=== PATIENT | female | born 1930 | race Caucasian/White ===

== ENCOUNTER 2017-05-01 07:48 | Emergency (ER) | payer MEDICARE ==
[2017-05-01 08:44] LABS: BLOOD UREA NITROGEN 29 mg/dL (7-17); CALCIUM 9.5 mg/dL (8.4-10.2); CHLORIDE 110 mmol/L (98-107); GLUCOSE 94 mg/dL (70-100); POTASSIUM 3.4 mmol/L (3.5-5.1); SODIUM 142 mmol/L (137-145)
[2017-05-01 08:48] LABS: HEMOGLOBIN 12.8 g/dL (12.0-16.0); MEAN CORPUS. HGB CONCENTRATION 33.6 g/dL (32.0-36.0); MEAN CORPUSCULAR HEMOGLOBIN 34.7 pg (29.0-35.0); PLATELET COUNT 264 X 10^3uL (130-440); RED BLOOD COUNT 3.67 X 10^6uL (4.20-6.10); RED CELL DISTRIBUTION WIDTH 12.1 % (11.5-14.5); WHITE BLOOD COUNT 11.7 X 10^3uL (3.9-10.7)
[2017-05-01 08:49] LABS: BASOPHIL# 0.1 X 10^3uL (0.0-0.1); BASOPHILS 0.9 % (0.0-2.0); EOSINOPHILS 2.8 % (0.0-6.0); EOSINOPHILS# 0.3 X 10^3uL (0.0-0.4); LYMPHOCYTES 26.1 % (20.0-40.0); LYMPHOCYTES# 3.1 X 10^3uL (0.8-3.8); MEAN PLATELET VOLUME 8.1 fL (7.4-10.4); MONOCYTES# 1.1 X 10^3uL (0.2-1.0); NEUTROPHILS 61.2 % (54.0-75.0); NEUTROPHILS# 7.2 X 10^3uL (2.6-6.7)
--- NOTE | 2017-05-01 10:54 | ER PHYSICIAN DOCUMENTATION ---
Physician Documentation [facility] Name:Chanel Velasquez Age:86 yrs Sex:Female :1930 Arrival Date:05/01/2017 Time:07:48 Bed4 Private MD:Kristina Bustillos ED, Chris Disposition: 05/01/17 10:19 Discharged to Home/Self Care. Impression: Prescription Medicine Overdose. - Condition is Good. - Discharge Instructions: OVERDOSE, Accidental (Adult). - Medical Reconciliation form form. - Follow up: Kristina Bustillos MD; When: 4- 6 days; Reason: Recheck today's complaints, Continuance of care. - Problem is new. - Symptoms are resolved. - Notes: Drink plenty of fluids today. Start taking your Norvasc as usual tomorrow morning. HPI: 05/01 08:00 This 86 yrs old Female presents to ER via Private Vehicle with complaints of cd Accidental Overdose. 08:00 The patient presents to the emergency department after a known overdose, that was cd accidental. Context: Method: the patient has a confirmed or suspected ingestion, Norvasc, Time: 30 minute(s) ago, Extent: the strength of the pills/capsules is 2.5 mg(s), the patient had a total ingestion of approximately 15 mg(s), the OD/poisoning occurred at at home, and was witnessed no one, Psychiatric history: none, Previous OD/poisoning history: none. Associated signs and symptoms: The patient has no apparent associated signs or symptoms. Historical: - Allergies: Ciprofloxacin; Latex; - Home Meds: 1. prednisone oral Unknown once daily 2. Methotrexate (Anti-Rheumatic) Oral 3. Synthroid Oral - PMHx: polymyalgia rheumatica ; ADHD; RBBB; PE; HYPOTHYROIDISM; - Tetanus: < 10 years. - Ebola Screening: : Patient negative for fever greater than or equal to 101.5 degrees Fahrenheit, and additional compatible Ebola Virus Disease symptoms. Patient denies exposure to infectious person. Patient denies travel to an Ebola-affected area in the 21 days before illness onset. No symptoms or risks identified at this time. . - Immunization history: Flu Vaccine < 1 year. - Social history: Smoking status: Patient states former smoker of tobacco. ROS: 08:43 Constitutional: Negative for fatigue, poor PO intake. cd 08:43 Cardiovascular: Negative for chest pain, palpitations. 08:43 Respiratory: Negative for shortness of breath. 08:43 Neuro: Negative for acute changes. 08:43 All other systems are negative. Exam: 08:43 Constitutional: The patient appears in no acute distress, alert, awake, anxious. cd 08:43 Cardiovascular: Rate: normal, Rhythm: regular, Pulses: no pulse deficits are appreciated, Heart sounds: normal. 08:43 Respiratory: the patient does not display signs of respiratory distress, Respirations: normal, no acute changes, Breath sounds: are normal, clear throughout. 08:43 Neuro: Orientation: is normal, Cranial nerves: CN II- XII are normal as tested, Cerebellar function: is grossly normal, Motor: is normal. 08:43 Psych: Behavior/mood is pleasant, cooperative, anxious, Affect is calm, Patient has no thoughts/intents to harm self or others. Judgement / Insight is normal. Vital Signs: 08:01 BP 154 / 103 RA Sitting (auto/pedi); Pulse 99; Resp 16; Temp 98.5(TE); Pulse Ox 94% on cb R/A; Weight 70.31 kg; Height 5 ft. 2 in. (157.48 cm); Pain 2/10; 08:19 BP 151 / 82; Pulse 94; Resp 21; Pulse Ox 91% on R/A; cb 08:32 BP 171 / 85; Pulse 103; Resp 24; Pulse Ox 92% on R/A; cb 09:30 BP 133 / 60; Pulse 90; Pulse Ox 88% on R/A; cb 10:01 BP 120 / 30; Pulse 88; Pulse Ox 88% on R/A; cb 10:17 BP 158 / 63; Pulse 93; Pulse Ox 90% on R/A; cb 08:01 Body Mass Index 28.35 (70.31 kg, 157.48 cm) cb Rosalva Coma Score: 08:43 Eye Response: spontaneous(4). Verbal Response: oriented(5). Motor Response: obeys cd commands(6). Total: 15. MDM: 07:59 Patient medically screened. cd 08:05 Data interpreted: manager monitoring: rate is 99 beats/min, rhythm is normal sinus rhythm, cd regular, with no ectopy, Interpretation: normal rate, Pulse oximetry: on room air is 94 %. Interpretation: normal. ECG:. 08:46 Data reviewed: vital signs, nurses notes, EKG, and as a result, I will continue to cd observe the patient. 10:35 EKG attached 05/01 08:45 Order name: BASIC METABOLIC PANEL; Complete Time: 10:12 EDLA 05/01 08:49 Interpretation: Normal Except: POTASSIUM 3.4; Hypokalemia. 05/01 08:50 Order name: CBC AUTO DIF, MDIF/RMOR IF IND; Complete Time: 10:12 EDLA 05/01 10:12 Interpretation: Normal Except: WHITE BLOOD COUNT 11.7. 05/01 08:20 Order name: EKG - 12 Lead; Complete Time: 08:40 05/01 08:20 Order name: Iv Saline Lock; Complete Time: 08:40 05/01 08:21 Order name: Cardiac Monitoring - Continuous; Complete Time: 08:40 05/01 08:21 Order name: Pulse Ox Continuous; Complete Time: 08:40 cd EC:11 Rate is 97 beats/min. Rhythm is regular. WI interval is normal. QRS interval is cd prolonged. QT interval is normal. No Q waves. T waves are Normal. No ST changes noted. 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 Interpreted by me. Dispensed Medications: No medications were administered Signatures: Chayo Bartlett, ROMEL RN Kashif Mendoza MD MD cd
--- NOTE | 2017-05-01 10:54 | ER NURSING DOCUMENTATION ---
Nurse's Notes [facility] Name:Chanel Velasquez Age:86 yrs Sex:Female :1930 Arrival Date:05/01/2017 Time:07:48 Bed4 Private MD:Kristina Bustillos Diagnosis:Prescription Medicine Overdose Presentation: 05/01 07:54 Presenting complaint: Patient states: I took 6 BP pills by accident,. Transition of cb care: Home. 07:54 Method Of Arrival: Private Vehicle cb 07:54 Acuity: [place]AP[place] 3 cb 08:04 Notified ED Physician of patient's arrival and CC Dr. Constantino notified. cb Triage Assessment: 08:02 General: Appears in no apparent distress, well groomed, Behavior is cooperative. Pain: cb Complains of pain in lumbar area, left low back and right low back Aggravated by weight bearing, including walking. 08:02 EENT: No deficits noted. cb 08:02 Neuro: Level of Consciousness is awake, alert, Oriented to person, place, time, event. cb Cardiovascular: Rhythm is Right BBB. Respiratory: Airway is patent Trachea midline Respiratory effort is even, unlabored, Respiratory pattern is regular, symmetrical, Breath sounds are clear in right upper lobe, left upper lobe, right middle lobe, left lower lobe and right lower lobe. GI: Reports normal bowel habits, tolerance of fluids, tolerance of food. : No deficits noted. Derm: Skin is fragile, is thin. Musculoskeletal: Reports pain in back. Historical: - Allergies: Ciprofloxacin; Latex; - Home Meds: 1. prednisone oral Unknown once daily 2. Methotrexate (Anti-Rheumatic) Oral 3. Synthroid Oral - PMHx: polymyalgia rheumatica ; ADHD; RBBB; PE; HYPOTHYROIDISM; - Tetanus: < 10 years. - Ebola Screening: : Patient negative for fever greater than or equal to 101.5 degrees Fahrenheit, and additional compatible Ebola Virus Disease symptoms. Patient denies exposure to infectious person. Patient denies travel to an Ebola-affected area in the 21 days before illness onset. No symptoms or risks identified at this time. . - Immunization history: Flu Vaccine < 1 year. - Social history: Smoking status: Patient states former smoker of tobacco. Screenin:49 Infectious Disease Risk None. Abuse screen: Denies threats or abuse. Denies injuries cb from another. Nutritional screening: No deficits noted. Vital Signs: 08:01 BP 154 / 103 RA Sitting (auto/pedi); Pulse 99; Resp 16; Temp 98.5(TE); Pulse Ox 94% on cb R/A; Weight 70.31 kg; Height 5 ft. 2 in. (157.48 cm); Pain 2/10; 08:19 BP 151 / 82; Pulse 94; Resp 21; Pulse Ox 91% on R/A; cb 08:32 BP 171 / 85; Pulse 103; Resp 24; Pulse Ox 92% on R/A; cb 09:30 BP 133 / 60; Pulse 90; Pulse Ox 88% on R/A; cb 10:01 BP 120 / 30; Pulse 88; Pulse Ox 88% on R/A; cb 10:17 BP 158 / 63; Pulse 93; Pulse Ox 90% on R/A; cb 08:01 Body Mass Index 28.35 (70.31 kg, 157.48 cm) cb Rosalva Coma Score: 08:43 Eye Response: spontaneous(4). Verbal Response: oriented(5). Motor Response: obeys cd commands(6). Total: 15. ED Course: 07:50 Patient arrived in ED. ds 07:50 Kristina Bustillos MD is Private Physician. ds 07:54 Chayo Bartlett, ROMEL is Primary Nurse. cb 07:55 Triage completed. cb 07:59 Kashif Constantino MD is Attending Physician. cd 08:10 EKG done. (by ED staff). Reviewed by Kashif Constantino MD. cb 08:25 Inserted peripheral IV: 22 gauge in right Wrist and blood collected. cb 08:25 Labs drawn. (by ED staff). Sent per order to lab. cb 08:50 Valuables Remains with patient Patient has correct armband on for positive cb identification. Placed in gown. Bed in low position. Call light in reach. Side rails up X2. vehicle monitor technician on. Pulse ox on. NIBP on. Diet tray given. 08:51 Notified Poison control prior to arrival of patient. Case # [id number]. Diet: Patient cb given regular meal. 10:18 Kristina Bustillos MD is Referral Physician. cd 10:35 EKG attached cb Administered Medications: No medications were administered Outcome: 10:19 Discharge ordered by MD. cd 10:45 Discharged to home ambulatory, with friend. cb 10:45 Condition: stable 10:45 Discharge Assessment: Patient awake, alert and oriented x 3. No cognitive and/or functional deficits noted. Patient verbalized understanding of disposition instructions. 10:45 Discharge instructions given to patient, Instructed on discharge instructions, follow up and referral plans. Demonstrated understanding of instructions. 10:45 IV D/Amando 10:53 Patient left the ED. cb 05/02 14:15 Discharge F/U Call: Unable to reach: no answer st Signatures: Chayo Bartlett, RN RN Sejal Lewis RN RN st Srot, Susan, Reg Reg ds Kashif Constantino MD MD cd
== END 2017-05-01 10:54 | disposition home or self-care (01) ==
LOC: ER 07:48
DX: T46.1X1A Poisoning by calcium-channel blockers, accidental (unintentional), initial encounter (principal); E87.6 Hypokalemia; I45.10 Unspecified right bundle-branch block; I44.4 Left anterior fascicular block; I10 Essential (primary) hypertension; Z79.899 Other long term (current) drug therapy
CPT/HCPCS: 80048; 85025; 93005; 93010; 99283; 99284